=== PATIENT | female | born 1945 | race Caucasian/White ===

== ENCOUNTER 2018-12-11 04:40 | Emergency (ER) | payer MEDICARE ==
[~2018-12-11] VITALS: Ht 162.6 cm; Wt 77.1 kg
[2018-12-11] MEDS ORDERED: PROPRANOLOL 20M20 M1 PO (04:50)
[2018-12-11] MEDS ORDERED: XANAX 0.5 MG0.5 MG PO (04:51)
[2018-12-11 05:30] VITALS: BP 130/56
== END 2018-12-11 05:30 | disposition home or self-care (01) ==
LOC: M.ERS 04:40
DX: S61.210A Laceration without foreign body of right index finger without damage to nail, initial encounter (principal); I10 Essential (primary) hypertension; Z90.49 Acquired absence of other specified parts of digestive tract; Z90.89 Acquired absence of other organs; W26.8XXA Contact with other sharp object(s), not elsewhere classified, initial encounter; Y92.89 Other specified places as the place of occurrence of the external cause; Y93.89 Activity, other specified; Y99.8 Other external cause status